=== PATIENT | male | born 1935 | race Caucasian/White ===

== ENCOUNTER 2017-07-19 17:33 | Emergency (ER) | payer OTHER ==
[~2017-07-19] VITALS: Ht 170.2 cm; Wt 81.6 kg
[~2017-07-19 17:33] MED LIST: ATOR40TA52; ATOR40TA52 PO; CLON0.2T12 PO; CLOP75TA41 PO; ERYTOIN22 OP; HYDR-2650 PO; ISOS10TA2 PO; LISI-708 PO; LORAPOW30 PO; MET50T PO; MOME200A IN; NITR400A5 TL; OMEP20TA44 PO; PERCOT PO; SPIR25TA89 PO; TRIATAB3 OR; WARF5TAB71
[2017-07-19 18:54] LABS: Basophils # (auto) 0 uL; Basophils % (auto) 0.6 % (0.0-2.0); Eosinophils # (auto) 0.2 uL; Eosinophils % (auto) 1.8 % (0.0-7.0); Hematocrit 30.5 % (41.0-53.0); Hemoglobin 10.3 g/dL (13.5-17.5); Lymphocytes # (auto) 1.4 uL; Lymphocytes % (auto) 16.3 % (10.0-50.0); Mean Corpuscular Hemoglobin 32.9 pg (28.0-32.0); Mean Corpuscular Hgb Conc. 33.7 g/dL (32.0-36.0); Mean Corpuscular Volume 97.4 fL (80.0-100.0); Mean Platelet Volume 6.4 fL (6.9-10.8); Monocytes # (auto) 0.9 uL; Monocytes % (auto) 10.1 % (0.0-12.0); Neutrophils # (auto) 6.1 uL; Neutrophils % (auto) 71.2 % (37.0-80.0); Platelet Count (auto) 259 10^3/uL (140-450); Red Cell Distribution Width 14.2 % (11.8-14.3); White Blood Cell 8.6 10^3/uL (4.4-10.8)
[2017-07-19 19:10] LABS: Albumin 3.4 g/dL (3.4-5.0); Alkaline Phosphatase 112 U/L (45-117); Anion Gap 8 (5-15); Aspartate Aminotransferase 49 U/L (15-37); BUN/Creatinine Ratio 11.9; Bilirubin, Total 0.3 mg/dL (0.2-1.0); Blood Urea Nitrogen 12 mg/dL (7-18); Calcium 8.2 mg/dL (8.5-10.1); Carbon Dioxide 25 mmol/L (21-32); Chloride 101 mmol/L (98-107); GFR African American 91 mL/min; GFR Non-African American 75 mL/min; Glucose 115 mg/dL (74-106); Magnesium 2.2 mg/dL (1.6-2.6); Potassium 4.5 mmol/L (3.5-5.1); Sodium 134 mmol/L (136-145); Total Protein 6.5 g/dL (6.4-8.2)
[2017-07-19 19:21] LABS: INR 2.83 (0.9-1.15); Partial Thromboplastin Time 35.9 sec (22.64-33.71); Prothrombin Time 31.2 sec (9.37-12.3)
[2017-07-19] MEDS ORDERED: MORPHINE SULF INJ 2 MG/ML SYRINGE 1ML IV ONE (20:45)
[2017-07-20] MEDS ORDERED: oxyCODONE ER 10 MG TAB PO ONE (00:30)
[2017-07-20 00:36] VITALS: BP 117/71
== END 2017-07-20 00:49 | disposition home or self-care (01) ==
LOC: ER 17:33 → EDBD 17:33 → EDSEX 17:33 → ER 07-20 00:49
DX: R07.9 Chest pain, unspecified (principal); I10 Essential (primary) hypertension; I48.91 Unspecified atrial fibrillation; I25.10 Atherosclerotic heart disease of native coronary artery without angina pectoris; J44.9 Chronic obstructive pulmonary disease, unspecified; K21.9 Gastro-esophageal reflux disease without esophagitis; E78.5 Hyperlipidemia, unspecified; I25.2 Old myocardial infarction; Z98.61 Coronary angioplasty status; Z90.49 Acquired absence of other specified parts of digestive tract; Z91.041 Radiographic dye allergy status; Z79.899 Other long term (current) drug therapy; Z79.01 Long term (current) use of anticoagulants
CPT/HCPCS: 36415; 71010; 80053; 83735; 84484; 85025; 85610; 85730; 93005; 94761; 96374; 99285; J2270

== ENCOUNTER 2019-11-17 00:12 | Emergency (ER) | payer OTHER ==
[~2019-11-17] VITALS: Ht 165.1 cm; Wt 74.8 kg
[~2019-11-17 00:12] MED LIST changes: -HYDR-2650 PO; +HYDR10TA26 PO; +SPIR25TA8 PO; -SPIR25TA89 PO
[2019-11-17 02:10] LABS: Basophils # (auto) 0 uL; Basophils % (auto) 0.6 % (0.0-2.0); Eosinophils # (auto) 0.1 uL; Eosinophils % (auto) 1.8 % (0.0-7.0); Hematocrit 29.2 % (41.0-53.0); Hemoglobin 9.8 g/dL (13.5-17.5); Lymphocytes # (auto) 1.6 uL; Lymphocytes % (auto) 26.1 % (10.0-50.0); Mean Corpuscular Hemoglobin 30.3 pg (28.0-32.0); Mean Corpuscular Hgb Conc. 33.5 g/dL (32.0-36.0); Mean Corpuscular Volume 90.5 fL (80.0-100.0); Monocytes % (auto) 15.2 % (0.0-12.0); Neutrophils # (auto) 3.5 uL; Neutrophils % (auto) 56.3 % (37.0-80.0); Nucleated Red Blood Cells % 0.1 %; Platelet Count (auto) 212 10^3/uL (140-450); Red Blood Cells 3.23 10^6/uL (4.5-5.90); Red Cell Distribution Width 17.9 % (11.8-14.3); White Blood Cell 6.3 10^3/uL (4.4-10.8)
[2019-11-17 02:24] LABS: INR 1.18 (0.9-1.15); Partial Thromboplastin Time 34.2 sec (23.64-32.05)
[2019-11-17 02:27] LABS: Albumin 3.3 g/dL (3.4-5.0); BUN/Creatinine Ratio 18.2; Calcium 8.3 mg/dL (8.5-10.1); Potassium 3.9 mmol/L (3.5-5.1)
[2019-11-17 02:32] LABS: Bilirubin, Total 0.4 mg/dL (0.2-1.0); Total Protein 6.6 g/dL (6.4-8.2)
[2019-11-17] MEDS: IOHEXOL 300 MG/ML 100ML BOTTLE IJ ONE (03:03)
[2019-11-17 03:06] LABS: Urine Bacteria NONE SEEN /hpf (None Seen); Urine Blood Negative /uL (Negative); Urine Specific Gravity 1.011 (1.001-1.035); Urine WBC <1 /hpf (0 - 3)
[2019-11-17] MEDS: HYDROcodone-ACET 10/325MG TAB PO ONE (03:11)
[2019-11-17] MEDS: FUROSEMIDE 20 MG/2 ML VIAL IV ONE (05:23)
[2019-11-17] MEDS: ONDANSETRON HCL 4 MG/2 ML VIAL IV ONE ×2 (06:31→08:59)
[2019-11-17] MEDS: HYDROcodone-ACET 5/325MG TAB PO ONE (08:45)
[2019-11-17] MEDS: ONDANSETRON HCL 4 MG/2 ML VIAL ONE (08:59)
[2019-11-17 10:05] VITALS: BP 139/68
== END 2019-11-17 10:14 | disposition home or self-care (01) ==
LOC: EDBD 00:12 → ER 00:18
DX: I11.0 Hypertensive heart disease with heart failure (principal); I50.9 Heart failure, unspecified; I71.2 Thoracic aortic aneurysm, without rupture; F41.9 Anxiety disorder, unspecified; E78.5 Hyperlipidemia, unspecified; I25.2 Old myocardial infarction; J45.909 Unspecified asthma, uncomplicated; Z90.49 Acquired absence of other specified parts of digestive tract; Z98.61 Coronary angioplasty status; Z91.041 Radiographic dye allergy status
CPT/HCPCS: 36415; 71045; 71250; 80053; 81001; 83735; 83880; 84484; 85025; 85610; 85730; 93005; 96374; 96375; 96376; 99284; J1940; J2405

== ENCOUNTER 2020-06-20 16:25 | Emergency (ER) | payer OTHER ==
[~2020-06-20] VITALS: Ht 165.1 cm; Wt 68.5 kg
[2020-06-20 18:27] LABS: Basophils # (auto) 0 10 ^3/uL (0-0.2); Basophils % (auto) 0.1 % (0.0-2.0); Eosinophils # (auto) 0 10 ^3/uL (0-0.8); Hematocrit 30.8 % (41.0-53.0); Hemoglobin 10.1 g/dL (13.5-17.5); Lymphocytes # (auto) 1.1 10 ^3/uL (0.4-5.4); Lymphocytes % (auto) 11.8 % (10.0-50.0); Mean Corpuscular Hemoglobin 30.6 pg (28.0-32.0); Mean Corpuscular Hgb Conc. 32.8 g/dL (32.0-36.0); Mean Corpuscular Volume 93.1 fL (80.0-100.0); Monocytes # (auto) 0.9 10 ^3/uL (0-1.3); Monocytes % (auto) 9.8 % (0.0-12.0); Neutrophils # (auto) 7.2 10 ^3/uL (1.6-8.6); Neutrophils % (auto) 78.3 % (37.0-80.0); Platelet Count (auto) 260 10^3/uL (140-450); Red Blood Cells 3.31 10^6/uL (4.5-5.90); Red Cell Distribution Width 16.1 % (11.8-14.3); White Blood Cell 9.2 10^3/uL (4.4-10.8)
[2020-06-20 18:44] LABS: Potassium 4.5 mmol/L (3.5-5.1)
[2020-06-20 18:48] LABS: Albumin 3.4 g/dL (3.4-5.0); BUN/Creatinine Ratio 17.4; Calcium 8.5 mg/dL (8.5-10.1)
[2020-06-20 18:51] LABS: Bilirubin, Total 0.4 mg/dL (0.2-1.0); INR 2.6 (0.9-1.15); Partial Thromboplastin Time 35.4 sec (23.0-31.2)
[2020-06-20] MEDS ORDERED: BACITRACIN TOP OINT 1 UD PKG TOP ONE (20:07)
[2020-06-20 20:25] VITALS: BP 127/73
[2020-06-20] MEDS ORDERED: BACITRACIN INJ 50000 UNIT VIAL TOP ONE (21:15)
== END 2020-06-20 19:35 | disposition home or self-care (01) ==
LOC: ER 16:25
DX: S16.1XXA Strain of muscle, fascia and tendon at neck level, initial encounter (principal); S00.81XA Abrasion of other part of head, initial encounter; S60.212A Contusion of left wrist, initial encounter; I25.10 Atherosclerotic heart disease of native coronary artery without angina pectoris; J44.9 Chronic obstructive pulmonary disease, unspecified; K21.9 Gastro-esophageal reflux disease without esophagitis; E78.5 Hyperlipidemia, unspecified; I10 Essential (primary) hypertension; I25.2 Old myocardial infarction; Z88.8 Allergy status to other drugs, medicaments and biological substances; Z91.041 Radiographic dye allergy status; W01.10XA Fall on same level from slipping, tripping and stumbling with subsequent striking against unspecified object, initial encounter; Y93.89 Activity, other specified; Y92.89 Other specified places as the place of occurrence of the external cause; Y99.8 Other external cause status
CPT/HCPCS: 36415; 70450; 72125; 73100; 80053; 85025; 85610; 85730; 93005